=== PATIENT | male | born 1945 | race Caucasian/White ===

== ENCOUNTER 2016-05-01 12:25 | Inpatient (IN) | payer MEDICARE, BC ==
--- NOTE | ~2016-05-01 | CN ---
Consultation Report [facility] [address] [place]. [address] NAME: JOSE LIU : 45 STATUS : ADM IN PAT#: [id number] AGE: 70 ADM/REG DATE : 05/02/16 MR#: [id number] REPORT SERV DATE: 05/04/16 DICTATED BY: JHON ROY DATE: 05/03/16 REPORT STATUS : Draft TRANSCRIBED BY: MODL DATE: 05/03/16 CONSULTATION DATE OF CONSULTATION: CHIEF COMPLAINT: Weakness in lower extremities with frequent falls. HISTORY OF PRESENT ILLNESS: A 70-year-old male who is currently and the CDU unit. I was asked to see after he had an MRI revealing some spinal stenosis and potential nerve root impingement in the lumbar spine. His history is well outlined in the history and physical. His symptoms started last Thursday morning on April 30. He got up and walked around his bed to turn off the CPAP machine, and his leg started feeling wobbly and jerking and he fell against the wall, hit his head on the fire extinguisher. He was on the floor, and he said initially he could not even pull himself about the floor with his arms or anything. He felt weak all over including the arms and legs. Ultimately, he had some recovery, he was able to pull himself up with his arms and went into the living room area. He was going to call his daughter, who was upstairs in a different part of the house, and his legs buckled, and he fell on to the chair. Over the course of the day on Thursday, he fell approximately 5 times because particularly his left leg would start jerking and wobbling and just give way. He did not have further feeling of weakness in the upper extremities that day, it was mostly in the legs, and he did have some right-sided feeling of weakness but mostly in the left. Ultimately, he came to the hospital and has been admitted with a right-sided embolic CVA. As noted, an MRI has been obtained that shows particularly L5-S1 foraminal stenosis with L5 nerve impingement. The patient has had a history of some intermittent low back pain. He has never had an actual surgery. His back pain has been bothersome but has never required significant treatment. This morning, he says his legs feel much stronger. He was able to walk with the therapist yesterday into the phillips except when he got to the end of the phillips, his left leg started kind of wobbling and jerking, and he felt like he was going to fall. His past medical history, surgical history, current medications, allergies, social history, family history, etc., is noted from the H and P, it is in the chart. PHYSICAL EXAMINATION: He is alert, cooperative, well oriented. He follows directions appropriately. His upper extremity neurological exam seems to have normal motor strength. His reflexes are symmetrical. They are only 1/4 at most. He does not have any pathologic reflexes that I can elicit in the upper extremities. In the lower extremities, his left leg today including the iliopsoas, quadriceps, hamstrings, tibialis anterior, and gastrocsoleus are 5/5. He does have upgoing toes on both sides. He has some mild hyperreflexia of the patellar reflexes, Achilles reflexes are harder to elicit. I did not map out any major sensory Consultation Report [address] [place]. [address] NAME: JOSE LIU : 45 STATUS : ADM IN PAT#: [id number] AGE: 70 ADM/REG DATE : 05/02/16 MR#: [id number] REPORT SERV DATE: 05/04/16 DICTATED BY: JHON ROY DATE: 05/03/16 REPORT STATUS : Draft TRANSCRIBED BY: BRITTON DATE: 05/03/16 deficit of the lower extremities. Orthopedically, he does not complain of pain with movement of the hips, knees, or ankles. There are no gross deformities in the extremities. The MRI of the lumbar spine is reviewed. He does have lumbar disc degeneration. He does not have any gross deformities and does not have any instability. He does have foraminal stenosis, worse at L5-S1, left and right side. He does have L5 nerve impingement. ASSESSMENT: 1. Status post cerebrovascular accident. 2. Lumbar disc degeneration with mild symptoms. 3. MRI evidence of nerve impingement but currently do not see any neurologic deficits secondary to the nerve impingement. RECOMMENDATION: At this time, I would treat him conservatively. I will have him follow up in a couple of weeks after he has gone through his recovery from the CVA. If necessary and he is symptomatic, would use epidural injections unless he is on anticoagulants. Could try also some physical therapy. No surgery is deemed necessary at this point. AIDAN/BRITTON Jhon Roy D.O. / [id number] CC: Jung Rodriguez Jr, MD
--- NOTE | ~2016-05-01 | DS ---
Discharge Summary [facility] [address] [place]. [address] NAME: JOSE LIU : 45 STATUS : DIS IN PAT#: [id number] AGE: 70 ADM/REG DATE : 05/02/16 MR#: [id number] REPORT SERV DATE: 05/07/16 DICTATED BY: LESLIE PEREZ DATE: 05/05/16 REPORT STATUS : Draft TRANSCRIBED BY: BRITTON DATE: 05/05/16 ADMISSION DATE: 05/02/2016 DISCHARGE DATE: 05/05/2016 CONSULTATION: Neurology, Dr. Peacock, and Orthopedic Surgeon, Dr. Rojas. PROCEDURE: None. DISCHARGE DIAGNOSES: 1. Right embolic cerebrovascular accident. 2. Spinal stenosis. 3. Chronic back pain. 4. Atrial fibrillation, on chronic anticoagulation. 5. Dyslipidemia. 6. Chronic pain syndrome. 7. Benign prostatic hyperplasia. 8. Obstructive sleep apnea, on CPAP. 9. Hypertension. DISCHARGE CONDITION: Stable. HISTORY OF PRESENT ILLNESS: For detailed HPI, please make reference to Dr. Danny Osorio's dictation on 05/01/2016. In summary, this is a 70-year-old male with a medical history significant for atrial fibrillation, on chronic anticoagulation with Eliquis, who presented to the hospital with recurrent falls; also found to have lower extremity weakness. Physical examination in the ER was significant for diminished strength in the left lower extremity with myoclonus. Laboratory data was essentially within normal range. EKG showed sinus rhythm. CT of the head negative for acute cerebrovascular ischemia. The patient was admitted to the hospital for a CVA workup. HOSPITAL COURSE: 1. Acute right embolic CVA. Neurology was consulted, recommended MRI and MRA of the brain. MRI confirmed the presence of two small foci of acute ischemia, one right frontal lobe, marginating the corpus callosum, and the second in the right parietal subcortical white matter near the vertex. No tPA was administered to the patient for right embolic stroke as the patient presented out of the window of tPA treatment based on the findings on the MRI and persistent neurologic deficit. The patient was evaluated by PT and recommended subacute rehab. At the time of discharge, the patient will be discharged to subacute rehab. 2. Chronic low back pain with radiculopathy. Given persistent left leg weakness and known history of chronic back pain, Orthopedic Surgeon was consulted, who recommended an MRI of the lumbar spine. MRI confirmed the presence of degenerative changes caused by central canal stenosis. An extensive discussion was had between the Orthopedic Surgeon given recent acute CVA. Orthopedics defer surgical intervention at this time. The patient will be discharged to subacute rehab on followup with orthopedic surgeon as an outpatient. Discharge Summary [address] [place]. [address] NAME: JOSE LIU : 45 STATUS : DIS IN PAT#: [id number] AGE: 70 ADM/REG DATE : 05/02/16 MR#: [id number] REPORT SERV DATE: 05/07/16 DICTATED BY: LESLIE PEREZ DATE: 05/05/16 REPORT STATUS : Draft TRANSCRIBED BY: BRITTON DATE: 05/05/16 3. Atrial fibrillation. The patient's rate was controlled with beta kya throughout the course of admission. The patient is currently on Eliquis for anticoagulation. The patient was advised to continue beta kya and chronic anticoagulation as an outpatient, and to continue to follow up with primary care physician and Cardiology. 4. Obstructive sleep apnea. The patient was placed on CPAP throughout the course of this admission. 5. Hypertension. The patient's blood pressure remains controlled throughout the course of admission. 6. Dyslipidemia. The patient was continued on atorvastatin. Lipitor was increased to 40 mg per day. 7. Muscle spasms. The patient reported occasional muscle spasm of the lower extremity and lower back. The patient was placed on baclofen with good response. The patient was advised to continue baclofen 10 mg p.o. b.i.d. as an outpatient. Muscle spams are likely related to spinal stenosis. IMAGING: MRI and MRA of the brain. Impression: 1. Degenerative changes, central canal stenosis which is mild at L1-L2 and L3, mild-to- moderate at L3-L4, moderate at L5-L6, and severe at L4-L5. Foraminal stenoses are present on the right at L2-L3, left at L4-L5, and bilaterally at L5-S1. 2. Abnormal signaling in the distal cord. Thoracic spine MRI is recommended. MRI of the brain. Impression: 1. Two small foci of acute ischemia. One right frontal lobe marginating the corpus callosum, and the second in the right parietal subcortical white matter near the vertex. 2. Frontal lobe cortical volume loss is similar to the earlier CT. Echocardiogram. Summary: 1. Normal LV size and systolic function. Estimated ejection fraction 55%. No regional wall motion abnormalities identified. Severe diastolic dysfunction. Normal right ventricular size and systolic function. Mild left atrial enlargement. Negative intravenous bubble study/no evidence of intracardiac shunt. Carotid Doppler. Impression: Bilateral category 1 disease, mild stenosis less than 50%. MRI of thoracic spine. Impression: 1. The thoracic spine has a normal appearance. There is no spinal cord edema or myelomalacia. The contrast enhancement is normal. 2. Multiple level degenerative changes. DISCHARGE MEDICATIONS: 1. mg p.o. b.i.d. 2. Lipitor 80 mg p.o. at bedtime. 3. Bumex 1 mg p.o. b.i.d. 4. Fenofibrate 160 mg p.o. daily. 5. Prozac 20 mg p.o. daily. 6. Gabapentin 800 mg p.o. t.i.d. 7. Riverside 5/325 mg p.o. daily. 8. Baclofen 10 mg p.o. b.i.d. p.r.n. 9. Metoprolol 25 mg p.o. b.i.d. Discharge Summary [address] [address] NAME: JOSE LIU : 45 STATUS : DIS IN PAT#: [id number] AGE: 70 ADM/REG DATE : 05/02/16 MR#: [id number] REPORT SERV DATE: 05/07/16 DICTATED BY: LESLIE PEREZ DATE: 05/05/16 REPORT STATUS : Draft TRANSCRIBED BY: BRITTON DATE: 05/05/16 10.Potassium 20 mEq p.o. daily. 11.Tamsulosin 0.4 mg capsule p.o. daily. 12.Combivent inhaler 1 inhaler puff q.4 hours. DISCHARGE DISPOSITION: The patient will be discharged to subacute rehab. DISCHARGE ACTIVITY: As tolerated at the rehab. DISCHARGE FOLLOWUP: The patient to continue to followup with Neurology as an outpatient in 1 to 3 weeks. The patient to follow up with primary care physician as an outpatient. Greater than 35 minutes was used to prepare this patient's discharge, reconcile medication, and advise the patient on discharge plans and followup. IOO/MODL Leslie Perez MD / [id number] CC: Jung Rodriguez Jr, MD David Elias, M.D. Chun C. Huang, MD Scott Hodges, D.O.
--- NOTE | ~2016-05-01 | HP ---
History And Physical [place] [id number] [facility] [place]. [address] NAME: JOSE LIU : 45 STATUS : ADM Koko PAT#: [id number] AGE: 70 ADM/REG DATE : 05/01/16 MR#: [id number] REPORT SERV DATE: 05/01/16 DICTATED BY: DANNY OSORIO DATE: 05/01/16 REPORT STATUS : Draft TRANSCRIBED BY: BRITTON DATE: 05/01/16 DATE OF ADMISSION: 05/01/2016 CHIEF COMPLAINT: Fall. HISTORY OF PRESENT ILLNESS: The patient is a 70-year-old white male, who has been doing relatively well, last in the hospital in 2013 with multiple medical issues, said he woke up today, and he just could not get control of his left lower extremity. He had fallen almost 5 times at home, and he nearly fell here in the hospital, getting up to have his x-rays done and CT of the brain done. He has not had any other constitutional symptoms predating this illness. He has not had any nausea or vomiting. He has not had any fever or chills. He has chronic diarrhea at times. He does lose control of his bowel. He has not had any bladder incontinence. He has not had any urine incontinence. He denied any significant back pain and reports he did not have any vertigo, which he has had in the past as well. REVIEW OF SYSTEMS: A 12-point review of systems were obtained, otherwise negative. PAST MEDICAL HISTORY: Significant for hypertension, pneumonia, COPD, chronic diarrhea, dementia, history of acute rhabdomyolysis. He has hypertension and paroxysmal atrial fibrillation. He had a type 2 myocardial infarction in 2013. He has chronic pain syndrome. He had metabolic encephalopathy and alcoholism in the past. PAST SURGICAL HISTORY: Significant for bilateral total knee arthroplasty, neck surgery with fusion of C3 through C7, neuroma removed from the left elbow, nasal surgery, and left hand surgery. HOME MEDICATIONS: Will be reviewed personally when available from pharmacy. ALLERGIES: PENICILLIN AND SULFA. SOCIAL HISTORY: He lives with his daughter. He does not smoke. He does not use active alcohol. He is a . 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 FAMILY HISTORY: Reviewed with the patient, but noncontributory for this encounter. PHYSICAL EXAMINATION: GENERAL: White male, lying on a gurney, appears to be in no obvious respiratory distress. He is awake, alert. He is oriented. VITAL SIGNS: Blood pressure is 175/76, temperature is 98.7, pulse is 52, saturation 98%. HEENT: Head is normocephalic, atraumatic. Pupils are equal, round, and reactive to light. Extraocular muscles are intact. Sclerae anicteric. Conjunctivae normal. Oropharynx without lesion. Tongue protrusion midline. Uvula midline. NECK: Supple. No jugular venous distention. No carotid bruits or thyromegaly is appreciated. No lymphadenopathy in the neck is palpable. HEART: Regular rate and rhythm. No murmurs, rubs, or gallops are heard. PMI is History And Physical [address] [address] NAME: JOSE LIU : 45 STATUS : ADM Koko PAT#: [id number] AGE: 70 ADM/REG DATE : 05/01/16 MR#: [id number] REPORT SERV DATE: 05/01/16 DICTATED BY: DANNY OSORIO DATE: 05/01/16 REPORT STATUS : Draft TRANSCRIBED BY: BRITTON DATE: 05/01/16 nondisplaced. LUNGS: Clear to auscultation both anteriorly and posteriorly without rales, rhonchi, wheezing, or consolidation. ABDOMEN: Scaphoid soft, nontender. Good bowel sounds. No rebound or guarding. No organomegaly. EXTREMITIES: Without cyanosis, clubbing, or edema. NEUROLOGICAL: Strength is equal and symmetrical in both upper extremities. Pmaaac-hm-ooio is normal. Coordination is normal in the upper extremities. Bilateral lower extremities, there is increased strength in the right lower extremity. There is somewhat diminished strength in the left lower extremity. He does have significant uncontrollable spasticity when the patient makes a purposeful movement with his left lower extremity. He has no myoclonus. Sensory exam seems to be grossly intact except there is significant decline in sensory exam in the left lower extremity. LABORATORY DATA: CT of the brain, no acute findings. Generalized atrophy is noted. Sodium 138, potassium 3.7, chloride 103, bicarb 23, BUN 16, creatinine 1.09, glucose 122, calcium is 8.8. CBC: White count is 7.3, hemoglobin of 15.9, hematocrit of 45, platelet count is 185,000. No left shift. PT, INR, and PTT are all normal. Urinalysis unremarkable. EKG sinus rhythm, no acute ST-T wave changes. First-degree AV block. IMPRESSION: 1. Uncontrollable spasm of the left lower extremity, possibility includes a cerebrovascular accident versus a lumbar spine stenosis. 2. Multiple falls. 3. Atrial fibrillation with paroxysmal rapid ventricular response. 4. Hypertension. 5. Chronic pain syndrome. 6. Hyperlipidemia. 7. Benign prostatic hyperplasia with elevated prostate to be followed by Dr. Cabrera in the outpatient setting. 8. He has sleep apnea and he is continually using CPAP. PLAN: The patient will be admitted for observation. MRI of the brain and lumbar spine will be done. PT evaluation and treatment will be done. Check routine labs again. Home medications have been personally addressed by me. Consider rehab and Physical Therapy evaluation during this hospitalization. This was discussed with the patient and the daughter at the bedside, and they understand and agree. SV/BRITTON Danny Osorio M.D. / [id number] History And Physical [address] [address] NAME: JOSE LIU : 45 STATUS : ADM Koko PAT#: [id number] AGE: 70 ADM/REG DATE : 05/01/16 MR#: [id number] REPORT SERV DATE: 05/01/16 DICTATED BY: DANNY OSORIO DATE: 05/01/16 REPORT STATUS : Draft TRANSCRIBED BY: MODFlorecita DATE: 05/01/16 CC: Jung Rodriguez Jr, MD David Elias, M.D.
--- NOTE | ~2016-05-01 | CN ---
Consultation Report [facility] [address] [place]. [address] NAME: JOSE LIU : 45 STATUS : ADM Koko PAT#: [id number] AGE: 70 ADM/REG DATE : 05/01/16 MR#: [id number] REPORT SERV DATE: 05/02/16 DICTATED BY: DATE: REPORT STATUS : Draft TRANSCRIBED BY: MODL DATE: 05/01/16 NEUROLOGY CONSULTATION DATE OF CONSULTATION: 05/01/2016 REASON FOR CONSULT: Left lower extremity weakness as well as spasm. HISTORY OF PRESENT ILLNESS: This is a 70-year-old male presented to [facility] secondary to acute onset of ambulation difficulties with the patient reports waking up at roughly 0745 hours. The patient got out of the bed was attempting to walk to other side of the bed in order to turn off his CPAP machine, when the patient suddenly noted left lower extremity weakness with difficulty controlling left lower extremity, subsequently sustained a fall. The patient also reports balance difficulties as well as mild dizziness described as room spinning with patient standing up. The patient reports that since his symptom onset, symptom has been stable. Describe being difficulty controlling left lower extremity weakness as well as balance issue with the patient noted to have uncontrolled shaking in the left lower extremity with standing. The patient denies similar symptoms in the past but does report lower back pain for roughly a week. The patient denies any recent falls and denies any bowel or bladder difficulties. The patient in addition denies any cervical difficulties. He does have previous history of a cervical spine fusion with titanium, otherwise no other loss cervical spine surgery was noted. The patient denies any recent illness, fever, chills, nausea, vomiting, chest pain, or shortness of breath. He denies any recent changes in medication. The patient at home does take Eliquis secondary to cardiac arrhythmia but does not take any aspirins at home. The patient reports compliance with Eliquis regimen, reports last Eliquis dosage was this morning. The patient otherwise denies any dysarthria, dysphasia, or language difficulties. Denies any diplopia. The patient does report some numbness in the left forefoot, denies any upper extremity involvement. Denies bilateral upper extremity weakness or numbness. PAST MEDICAL HISTORY: Significant for hypertension, apparent COPD, as well as chronic diarrhea. The patient carries diagnosis of dementia but does not appear to have significant difficulties with dementia. The patient also was noted to have hypertension as well as previous history of a cardiac arrhythmia likely atrial fibrillation as the patient is on Eliquis. The patient denies any pacemaker placement in the past. No known history of stroke was otherwise reported. ALLERGIES: THE PATIENT WAS NOTED TO HAVE ALLERGY TO PENICILLIN AND SULFA. SOCIAL HISTORY: The patient reports tobacco usage, but denies alcohol and denies recreational drug usage. REVIEW OF SYSTEMS: Negative except for those mentioned in the HPI. Consultation Report [facility] [id number] [facility]. [address] NAME: JOSE LIU : 45 STATUS : ADM Koko PAT#: [id number] AGE: 70 ADM/REG DATE : 05/01/16 MR#: [id number] REPORT SERV DATE: 05/02/16 DICTATED BY: DATE: REPORT STATUS : Draft TRANSCRIBED BY: BRITTON DATE: 05/01/16 FAMILY HISTORY: Family history is significant for hypertension. HOME MEDICATIONS: Consist of Eliquis, Bumex, Tylenol, Lofibra, Prozac, Neurontin, [place], Lopressor, potassium, Flomax, Restoril, Combivent, with the patient apparently has had a history of simvastatin usage in the past. The patient does use CPAP at night. At the time of evaluation, reported compliance with CPAP. PHYSICAL EXAMINATION: VITAL SIGNS: Since the hospital admission, the patient was noted to have vital signs with T- max of 98.7, heart rate of 52 to 56, respirations of 18 to 30 and blood pressure of 155 to 175 over 66 to 82. GENERAL: The patient is well developed, well nourished, in no acute distress. CARDIOVASCULAR: Regular rate and rhythm. No carotid bruits were otherwise auscultated. PULMONARY: Clear to auscultation bilaterally. NEUROLOGICAL: Generally, the patient is alert and oriented to person, place, year, month, as well as day. Follow simple and 2-step commands. No dysarthria. No aphasia was appreciated. Intact registration and mild difficulty with recall. Intact attention span at the time of evaluation, is able to provide history in logical and chronological fashion without significant difficulties. Cranial nerves II through XII, the patient demonstrated pupils equal, round, and reactive to light. Extraocular eye movement was noted to be intact. Mild nystagmus was seen when patient was standing up, otherwise the patient was noted to have intact peripheral vision. No visual neglect was appreciated. Symmetrical sensation. Midline tongue. Normal palatal movement. Symmetrical facial expression. Normal hearing at the time of evaluation. 5/5 bilateral upper extremity strength. No pronator drift was seen. Symmetrical bilateral upper extremities sensation where the patient reports decreased sensation in left lower extremity and foot, otherwise the patient demonstrated 4/5 left lower extremity proximal strength, 5/5 left lower extremity distal strength as well as 5/5 right lower extremity proximal and distal strength at the time of evaluation. Normal wetara-kk-jocu examination without ataxia. Deep tendon reflex was 2+ throughout. Upgoing toe on the left plantar reflex. Downgoing toe on the right plantar reflex. Otherwise, the patient is able to stand up, although the patient reports mild vertigo type of sensation with standing up, with mild truncal ataxia. The patient demonstrated mild wide base gait. Upon ambulation, the patient soon developed shaking of left lower extremity with ambulation as well as weakness in the left lower extremity. LABORATORY STUDIES: Demonstrates sodium 138, potassium 3.7, chloride 103, bicarb 23, BUN 16, creatinine 1.09, glucose 122, calcium 8.8, hemoglobin A1c is otherwise pending. White blood cell count 7.3, hemoglobin 15.9, hematocrit 45.9, and platelet count 185. CT scan of the brain was obtained and reviewed and no acute process was seen. IMPRESSION: 1. Left lower extremity weakness with the symptom noted at 0745 hours this morning. Alteplase or tPA was not offered secondary to patient taking Eliquis, the patient's last dose occurred this morning. At this time, concern for possible stroke versus L- spine abnormalities, also patient was noted to have mild ataxia with standing as well Consultation Report [facility] [id number] [facility] [place]. [address] NAME: JOSE LIU : 45 STATUS : ADM Koko PAT#: [id number] AGE: 70 ADM/REG DATE : 05/01/16 MR#: [id number] REPORT SERV DATE: 05/02/16 DICTATED BY: DATE: REPORT STATUS : Draft TRANSCRIBED BY: MODL DATE: 05/01/16 as nystagmus. We will check given patient's complaints of vertigo type of sensation. We will also check orthostatic vitals. We are recommending continue Eliquis, echocardiogram, carotid Doppler study, as well as laboratory study. We will recommend PT/OT to evaluate and treat given ataxic symptoms with even walking, more concern for possible stroke. 2. Tobacco abuse, counseled the patient regarding tobacco cessation. RECOMMENDATION: 1. MRI of L-spine without contrast. 2. PT/OT. 3. Echocardiogram with bubble study. 4. Carotid Doppler study. 5. Fasting lipid panel and hemoglobin A1c, thiamine, vitamin B12, folate, TSH, free T4 with morning labs. 6. Discontinue simvastatin. 7. Atorvastatin 80 mg p.o. at bedtime. 8. Continue Eliquis. 9. Counseled patient regarding tobacco cessation. [facility] Jose Peacock MD / [id number] CC: Jung Rodriguez Jr, MD David Elias, M.D.
[2016-05-01 11:21] LABS: WBC (NOT ORDERED) (RFLEX) 0 (0-5)
[2016-05-01 11:25] LABS: BASOPHILS 0.1 %; BASOPHILS ABSOLUTE 0.01 10/3/uL (0.0-0.16); EOSINOPHILS 1.1 %; EOSINOPHILS ABSOLUTE 0.08 10/3/uL (0.0-0.53); ER CBC TAT 0 Hrs 05 Mins; HEMATOCRIT 45.9 % (40.0-51.0); HEMOGLOBIN 15.9 g/dL (13.6-17.8); IMMATURE GRANULOCYTES 0.1 %; IMMATURE GRANULOCYTES ABSOLUTE 0.01 10/3/uL (0.0-0.11); LYMPHOCYTES 13.8 %; MEAN CORPUS HGB CONC 34.6 g/dL (32.0-36.0); MEAN CORPUSCULAR HEMOGLOB 34.9 pg (26.0-34.0); MEAN CORPUSCULAR VOLUME 100.7 fL (80-100); MONOCYTES 4.8 %; MONOCYTES ABSOLUTE 0.35 10/3/uL (0.21-1.20); NEUTROPHILS 80.1 %; NEUTROPHILS ABSOLUTE 5.81 10/3/uL (2.02-8.40); PLATELET COUNT 185 10/3/uL (150-400); RBC DISTRIBUTION WIDTH 12.5 % (12.0-16.0); RED CELL COUNT 4.56 10/6/uL (4.7-6.1); WHITE BLOOD CELLS 7.3 10/3/uL (4.5-10.5)
[2016-05-01 11:28] LABS: MANUAL DIFF NO %
[2016-05-01 11:29] LABS: ASCORBIC ACID (UR NOT ORDER) NEG (NEG); BILIRUBIN, URINE NEGATIVE (NEG); ER URINALYSIS TAT 0 Hrs 09 Mins; KETONE, URINE NEGATIVE (NEG); LEUKOCYTE ESTERASE(NOT OR NEG (NEG); NITRITE (URINE) NEG (NEG)
[2016-05-01 11:33] LABS: INTERNATIONAL NORMAL RATI 1.2 UNITS (-); PARTIAL THROMBO TIME 33.1 SEC (22.5-37.2); PROTIME (NOT ORD) 15.5 SEC (12.0-14.5)
[2016-05-01 11:38] LABS: CALCIUM, SERUM 8.8 MG/DL (8.5-10.4); CHLORIDE, SERUM 103 MMOL/L (96-112); CO2 (CARBON DIOXIDE) 23 MMOL/L (24-34); CREATININE 1.09 MG/DL (0.70-1.30); GFR AFRICAN AMERICAN 79 ML/MIN (>=60); GFR NON AFRICAN AMERICAN 68 ML/MIN (>=60); POTASSIUM, SERUM 3.7 MMOL/L (3.5-5.3); SODIUM, SERUM 138 MMOL/L (135-148)
[2016-05-01 11:47] LABS: BUN (BLOOD UREA NITROGEN) 16 MG/DL (6-23); GLUCOSE, SERUM 122 MG/DL (60-99)
[~2016-05-01 12:25] MED LIST: ASCRIPTIN PO; BUM1 PO; BUM2 PO; COMBIVENT INH; KDUR20 PO; KLONO1 PO; L40 PO; LOFIB160 PO; LOP50 PO; MCZ125 PO; MEDROLPAK4 PO; MSCONT15 PO; MULTIVIT/MIN PO; MYCELEX TROCHE10 MG PO; NEUR800 PO; NORCO1 TAB PO; NORV5 PO; PRIN20 PO; ZAROX2.5B PO; ZOCOR40 PO
[2016-05-01] MEDS ORDERED: BUM1 PO (14:48)
[2016-05-01] MEDS ORDERED: PROZAC PO (14:48)
[2016-05-01] MEDS ORDERED: ELIQUIS 5 MG TAB5 MG PO (14:49)
[2016-05-01] MEDS ORDERED: FLOMAX4 PO (14:49)
[2016-05-01] MEDS ORDERED: LOFIBRA160 MG PO (14:49)
[2016-05-01] MEDS ORDERED: KDUR20 PO (14:49)
[2016-05-01] MEDS ORDERED: NORCO1 TA1 PO (14:50)
[2016-05-01] MEDS ORDERED: RESTORIL30 MG PO (14:50)
[2016-05-01] MEDS ORDERED: LOP25 PO (14:50)
[2016-05-01] MEDS ORDERED: COMBIVENT PO (14:50)
[2016-05-01] MEDS ORDERED: NEUR800 PO (14:51)
[2016-05-01] MEDS ORDERED: TYLENOL PM PO (14:51)
[2016-05-01 18:35] LABS: FOLATE 13.3 NG/ML (>5.2); FREE T4 1.15 NG/DL (0.76-1.46); ULTRASENSITIVE TSH 0.984 MCIU/ML (0.358-3.740)
[2016-05-02 04:47] LABS: BASOPHILS 0.2 %; BASOPHILS ABSOLUTE 0.01 10/3/uL (0.0-0.16); EOSINOPHILS 1.3 %; EOSINOPHILS ABSOLUTE 0.07 10/3/uL (0.0-0.53); HEMATOCRIT 41.6 % (40.0-51.0); HEMOGLOBIN 14.4 g/dL (13.6-17.8); IMMATURE GRANULOCYTES 0.2 %; IMMATURE GRANULOCYTES ABSOLUTE 0.01 10/3/uL (0.0-0.11); LYMPHOCYTES 25.7 %; LYMPHOCYTES ABSOLUTE 1.41 10/3/uL (0.67-4.30); MEAN CORPUS HGB CONC 34.6 g/dL (32.0-36.0); MEAN CORPUSCULAR HEMOGLOB 34.7 pg (26.0-34.0); MEAN CORPUSCULAR VOLUME 100.2 fL (80-100); MEAN PLATELET VOLUME 9.7 fL (9.2-13.0); MONOCYTES 10.9 %; NEUTROPHILS 61.7 %; NEUTROPHILS ABSOLUTE 3.38 10/3/uL (2.02-8.40); PLATELET COUNT 169 10/3/uL (150-400); RBC DISTRIBUTION WIDTH 12.4 % (12.0-16.0); RED CELL COUNT 4.15 10/6/uL (4.7-6.1); WHITE BLOOD CELLS 5.5 10/3/uL (4.5-10.5)
[2016-05-02 04:56] LABS: MANUAL DIFF NO %
[2016-05-02 05:04] LABS: ALKALINE PHOSPHATASE 50 U/L (45-117); BUN (BLOOD UREA NITROGEN) 18 MG/DL (6-23); CALCIUM, SERUM 8.2 MG/DL (8.5-10.4); CHLORIDE, SERUM 103 MMOL/L (96-112); CO2 (CARBON DIOXIDE) 25 MMOL/L (24-34); CREATININE 1.03 MG/DL (0.70-1.30); GFR AFRICAN AMERICAN 85 ML/MIN (>=60); GFR NON AFRICAN AMERICAN 73 ML/MIN (>=60); POTASSIUM, SERUM 3.6 MMOL/L (3.5-5.3); SGOT(AST) 9 U/L (5-40); SGPT(ALT) 19 U/L (5-65); SODIUM, SERUM 140 MMOL/L (135-148); TOTAL PROTEIN 6.3 G/DL (6.0-8.5); TRIGLYCERIDE 329 MG/DL (< 150)
[2016-05-02 05:06] LABS: ALBUMIN 3.4 G/DL (3.5-5.0); CHOL/HDL RATIO(NOT ORDER) 6.8 (0-5); CHOLESTEROL 189 MG/DL (< 200); DIRECT BILIRUBIN < 0.1 MG/DL (0.0-0.4); GLUCOSE, SERUM 90 MG/DL (60-99); HDL CHOLESTEROL 28 MG/DL (> 39); INDIRECT BILIRUBIN(NOT ORDER) 0.9 MG/DL (0.1-0.9); LDL CHOLESTEROL 96 MG/DL (< 130); NON-HDL CHOLESTEROL 161 MG/DL (< 160); PHOSPHORUS, SERUM 3.9 MG/DL (2.5-4.5)
[2016-05-04 04:29] LABS: BASOPHILS 0.2 %; BASOPHILS ABSOLUTE 0.01 10/3/uL (0.0-0.16); EOSINOPHILS 1.8 %; HEMATOCRIT 42.1 % (40.0-51.0); HEMOGLOBIN 14.7 g/dL (13.6-17.8); IMMATURE GRANULOCYTES 0.2 %; IMMATURE GRANULOCYTES ABSOLUTE 0.01 10/3/uL (0.0-0.11); LYMPHOCYTES 28.1 %; LYMPHOCYTES ABSOLUTE 1.53 10/3/uL (0.67-4.30); MEAN CORPUS HGB CONC 34.9 g/dL (32.0-36.0); MEAN CORPUSCULAR HEMOGLOB 34.4 pg (26.0-34.0); MEAN CORPUSCULAR VOLUME 98.6 fL (80-100); MEAN PLATELET VOLUME 9.6 fL (9.2-13.0); MONOCYTES 7.5 %; MONOCYTES ABSOLUTE 0.41 10/3/uL (0.21-1.20); NEUTROPHILS 62.2 %; NEUTROPHILS ABSOLUTE 3.39 10/3/uL (2.02-8.40); PLATELET COUNT 150 10/3/uL (150-400); RBC DISTRIBUTION WIDTH 12.3 % (12.0-16.0); RED CELL COUNT 4.27 10/6/uL (4.7-6.1); WHITE BLOOD CELLS 5.5 10/3/uL (4.5-10.5)
[2016-05-04 04:32] LABS: MANUAL DIFF NO %
[2016-05-04 04:42] LABS: BUN (BLOOD UREA NITROGEN) 18 MG/DL (6-23); CHLORIDE, SERUM 102 MMOL/L (96-112); CO2 (CARBON DIOXIDE) 27 MMOL/L (24-34); CREATININE 0.93 MG/DL (0.70-1.30); GFR AFRICAN AMERICAN 96 ML/MIN (>=60); GFR NON AFRICAN AMERICAN 83 ML/MIN (>=60); GLUCOSE, SERUM 104 MG/DL (60-99); POTASSIUM, SERUM 3.8 MMOL/L (3.5-5.3); SODIUM, SERUM 138 MMOL/L (135-148)
== END 2016-05-05 17:51 | disposition home or self-care (01) | DRG 65 ==
LOC: ER 12:25 → CDU1 15:14 → CDU2 15:44 → 4SO 05-03 16:27
PROVIDERS: Emergency Medicine; Hospitalist; Internal Medicine; Psychiatry & Neurology Neurology
DX: I63.49 Cerebral infarction due to embolism of other cerebral artery (principal); G81.94 Hemiplegia, unspecified affecting left nondominant side; I48.0 Paroxysmal atrial fibrillation; Z91.81 History of falling; M48.07 Spinal stenosis, lumbosacral region; G89.4 Chronic pain syndrome; Z72.0 Tobacco use; M51.16 Intervertebral disc disorders with radiculopathy, lumbar region; G47.33 Obstructive sleep apnea (adult) (pediatric); F32.9 Major depressive disorder, single episode, unspecified; N40.0 Benign prostatic hyperplasia without lower urinary tract symptoms
CPT/HCPCS: 70450; 70551; 71010; 72148; 72157; 80048; 80061; 80069; 80076; 81001; 82140; 82607; 82746; 83036; 84425; 84439; 84443; 85025; 85610; 85730; 90471; 90714; 93005; 93306; 93880; 97162-GP; 97166-GO; 99285; A9270-GY; A9577; G8978-CJ-GP; G8979-CJ-GP; G8980-CJ-GP; G8987-CK-GO; G8988-CJ-GO